=== PATIENT | male | born 1950 | race Caucasian/White ===

== ENCOUNTER 2019-03-28 10:30 | Emergency (ER) | payer OTHER ==
[~2019-03-28] VITALS: Ht 177.8 cm; Wt 63.6 kg
--- NOTE | 2019-03-28 11:00 | EKG ---
[facility] [address] [place] [address] Test Date: 2019-03-28 Test Time: 10:47:17 Pat Name: JUSTIN ALVES Department: Room: Gender: M Leave Manager: : 1950 Requested By: GAVIOTA BURNS Order Number: [id number] Reading MD: Measurements Intervals [place] Rate: 86 P: 90 DE: 170 QRS: 27 QRSD: 78 T: 52 QT: 334 QTc: 402 Interpretive Statements SINUS RHYTHM NON SPECIFIC ST-T ABNORMALITY (ELEVATION) BORDERLINE ECG No previous ECG available for comparison
--- NOTE | 2019-03-28 11:17 | PHYS DOC ---
Past Medical History Additional Past Medical Histor: colon cancer Adult General Chief Complaint Chief Complaint: NEURO SYMPTOMS/DEFICITS HPI HPI Patient is a 69 year old male patient with history of colon cancer status post colostomy in January 2019 who presents via EMS with complaint of slurred speech and weakness of arm and leg. Patient states around 2000 last night he had weakne ss of left leg and arm with facial droop and went to bed around 2200 with the same problem and when he woke up this morning still had weakness of leg and arm and facial droop called 911. Patient denies history of the same problem, nausea and vomiting, chest pain and shortness of breath, fever and chills. Review of Systems Review of Systems Constitutional: Denies fever or chills [] Eyes: Denies change in visual acuity, redness, or eye pain [] HENT: Denies nasal congestion or sore throat [] Respiratory: Denies cough or shortness of breath [] Cardiovascular: No additional information not addressed in HPI [] GI: Denies abdominal pain, nausea, vomiting, bloody stools or diarrhea [] : Denies dysuria or hematuria [] Musculoskeletal: Denies back pain or joint pain [] Integument: Denies rash or skin lesions [] Neurologic: Denies headache, reports focal weakness Endocrine: Denies polyuria or polydipsia [] All other systems were reviewed and found to be within normal limits, except as documented in this note. Current Medications Current Medications Current Medications Medications (Trade) Dose Ordered Sig/Buster Start Time Stop Time Status Last Admin Dose Admin Aspirin (Aspirin Rectal Supp) 300 mg 1X STAT 03/28/19 12:08 03/28/19 12:10 DC 03/28/19 12:19 300 MG Aspirin (Children'S Aspirin) 324 mg 1X ONCE 03/28/19 11:15 03/28/19 12:09 DC Info (CONTRAST GIVEN -- Rx MONITORING) 1 each PRN DAILY PRN 03/28/19 11:45 03/28/19 14:50 DC Iohexol (Omnipaque 300 Mg/ml) 75 ml 1X ONCE 03/28/19 11:45 03/28/19 11:46 DC 03/28/19 11:48 75 ML Allergies Allergies Allergies Coded Allergies Type Severity Reaction Last Updated Verified Penicillins Allergy Unknown 03/28/19 Yes clindamycin Allergy Unknown 1/20/20 Yes Physical Exam Physical Exam Constitutional: Well developed, well nourished, mild distress, non-toxic appearance. [] HENT: Normocephalic, atraumatic. Eyes: PERRLA, conjunctiva normal, no discharge. [] Neck: Normal range of motion, no tenderness, supple, no stridor. [] Cardiovascular:Heart rate regular rhythm, no murmur [] Lungs & Thorax: Bilateral breath sounds clear to auscultation [] Abdomen: Bowel sounds normal, cholecystomy bag in place , soft, no tenderness, no masses, no pulsatile masses. [] Skin: Warm, dry, no erythema, no rash. [] Back: No tenderness, no CVA tenderness. [] Extremities: No tenderness, no cyanosis, no clubbing, ROM intact, no edema. [] Neurologic: Alert and oriented X 3, facial droop and left upper and lower extremity weakness with in NIHS Of 12 Psychologic: Affect normal, judgement normal, mood normal. [] Current Patient Data Vital Signs Vital Signs Date Time Temp Pulse Resp B/P (MAP) Pulse Ox O2 Delivery O2 Flow Rate FiO2 03/28/19 13:00 84 17 98 03/28/19 11:07 98.6 140/81 (100) Room Air 98.6 Lab Values Laboratory Tests Test 03/28/19 11:50 White Blood Count 13.2 x10^3/uL (4.0-11.0) H Red Blood Count 4.21 x10^6/uL (4.30-5.70) L Hemoglobin 13.8 g/dL (13.0-17.5) Hematocrit 41.1 % (39.0-53.0) Mean Corpuscular Volume 98 fL (79-100) Mean Corpuscular Hemoglobin 33 pg (25-35) Mean Corpuscular Hemoglobin Concent 34 g/dL (31-37) Red Cell Distribution Width 15.2 % (11.5-14.5) H Platelet Count 207 x10^3/uL (140-400) Neutrophils (%) (Auto) 91 % (31-73) H Lymphocytes (%) (Auto) 7 % (24-48) L Monocytes (%) (Auto) 2 % (0-9) Eosinophils (%) (Auto) 1 % (0-3) Basophils (%) (Auto) 0 % (0-3) Neutrophils # (Auto) 12.0 x10^3/uL (1.8-7.7) H Lymphocytes # (Auto) 0.9 x10^3/uL (1.0-4.8) L Monocytes # (Auto) 0.3 x10^3/uL (0.0-1.1) Eosinophils # (Auto) 0.1 x10^3/uL (0.0-0.7) Basophils # (Auto) 0.0 x10^3/uL (0.0-0.2) Segmented Neutrophils % 89 % (35-66) H Lymphocytes % 9 % (24-48) L Monocytes % 2 % (0-10) Platelet Estimate Adequate (ADEQUATE) Prothrombin Time 13.8 SEC (11.7-14.0) Prothrombin Time INR 1.1 (0.8-1.1) Activated Partial Thromboplast Time 24 SEC (24-38) Sodium Level 129 mmol/L (136-145) L Potassium Level 4.5 mmol/L (3.5-5.1) Chloride Level 96 mmol/L (98-107) L Carbon Dioxide Level 20 mmol/L (21-32) L Anion Gap 13 (6-14) Blood Urea Nitrogen 58 mg/dL (8-26) H Creatinine 1.3 mg/dL (0.7-1.3) Estimated GFR (Cockcroft-Gault) 55.1 BUN/Creatinine Ratio 45 (6-20) H Glucose Level 120 mg/dL (70-99) H Calcium Level 9.0 mg/dL (8.5-10.1) Magnesium Level 2.2 mg/dL (1.8-2.4) Total Bilirubin 0.7 mg/dL (0.2-1.0) Aspartate Amino Transferase (AST) 29 U/L (15-37) Alanine Aminotransferase (ALT) 31 U/L (16-63) Alkaline Phosphatase 215 U/L (46-116) H Creatine Kinase 71 U/L (39-308) Troponin I Quantitative < 0.017 ng/mL (0.000-0.055) IG-Ndh-X-Type Natriuretic Peptide 162 pg/mL (0-124) H Total Protein 6.7 g/dL (6.4-8.2) Albumin 3.0 g/dL (3.4-5.0) L Albumin/Globulin Ratio 0.8 (1.0-1.7) L Laboratory Tests 03/28/19 11:50 Laboratory Tests 03/28/19 11:50 EKG EKG EKG interpreted by me. EKG at 1047 showed normal sinus rhythm at rate of 87, nonspecific ST and T wave abnormality, no acute ST and T-wave elevation. Radiology/Procedures Radiology/Procedures [facility] [address] [place] [address] IMAGING REPORT Signed PATIENT: JUSTIN ALVES ACCOUNT: [id number] : 1950 LOCATION: ER AGE: 69 SEX: M EXAM STATUS: PRE ER ORD. PHYSICIAN: GAVIOTA BURNS MD REASON: slurred speech and facial droop PROCEDURE: CT HEAD WO CONTRAST Examination: CT HEAD WO CONTRAST History: Slurred speech and facial droop Comparison/Correlation: None Findings: Axial images of the head were obtained without contrast. Coronal reformatted images were provided. Subtle low attenuation is noted involving the high posterior parietal lobe and this is best seen on axial image 22. Subtle low-attenuation involving the right frontal lobe is also evident and this is best seen on axial image 19. Associated gyral effacement is noted primarily at the right posterior parietal region. Linear low attenuation involving the cerebellum bilaterally seen. No intracranial hemorrhage or midline shift. Globes optic nerves are unremarkable. Left sphenoid sinus mucous retention cyst is present. Mucosal thickening of the ethmoid air cells. Bony structures are intact. Impression: Acute right posterior parietal infarct appears to be present. Acute right frontal lobe infarct as well noted. No intracranial hemorrhage. On 03/30/2019 11:12 AM, results were reported to Dr. Burns. PQRS Compliance Statement: One or more of the following individualized dose reduction techniques were utilized for this examination: 1. Automated exposure control 2. Adjustment of the mA and/or kV according to patient size 3. Use of iterative reconstruction technique Electronically signed by: David Fowler MD (03/28/2019 11:13 AM) [facility] DICTATED and SIGNED BY: DAVID FOWLER MD DATE: 03/28/19 1113 [facility] [address] [place] [address] IMAGING REPORT Signed PATIENT: JUSTIN ALVES ACCOUNT: [id number] : 1950 LOCATION: ER AGE: 69 SEX: M EXAM STATUS: REG ER ORD. PHYSICIAN: GAVIOTA BURNS MD REASON: acute focal neuro deficit, slurred speech, facial droop PROCEDURE: CT ANGIOGRAPHY HEAD AND NECK ADDENDUM Addendum: Loss of reed-white matter differentiation involving the middle cerebral artery distribution at the anterior, lateral, and posterior aspect is seen. Maximum aspect score of 7 is noted. Electronically signed by: David Fowler MD (03/28/2019 1:07 PM) [facility] DICTATED AND SIGNED BY: DAVID FOWLER MD DATE: 03/28/19 1302 CC: GAVIOTA BURNS MD; MARISSA STRICKLAND MD ~ Examination: CT ANGIOGRAPHY HEAD AND NECK History: Acute focal neurologic deficits, slurred speech, facial droop Comparison/Correlation: CT head without contrast 03/28/2019 Findings: Axial images of the head and neck were obtained following IV contrast according to arteriography protocol. Maximum intensity projection images were provided. Sagittal and coronal reformatted images were provided. 3-D volume rendered images were provided. Right sided infusion port catheter is present. Angiographic findings: The aortic arch has a typical branching pattern. There is no arch vessel stenosis. There is no opacification of the right internal carotid artery seen at the level of the superior carotid bulb to the level just proximal to the cavernous carotid. Calcific plaque is noted involving the right carotid bulb. Stenosis involving the proximal right internal carotid artery with a diameter of 0.2 cm. More distally, diameter of up to 0.4 cm. Calcific plaque is noted at this level extending for length of 0.8 cm. The vertebral arteries are patent. Plaque is noted involving the proximal right vertebral artery without significant stenosis. The basilar artery is patent. Both posterior cerebral arteries are patent. The posterior communicating arteries are visualized. Contrast which is appears related to collateral flow is present within the right cavernous carotid artery is of lesser density than seen on the left cavernous carotid artery. Slight hypoperfusion of the right cerebral hemisphere is noted. Infarct involving the right posterior parietal region and the right lateral frontal region are acute in appearance. Infarct involving the right temporal lobe is also suggested with acute appearance. There is gyral effacement primarily at the right posterior parietal infarct. Nonangiographic findings: There is no intracranial hemorrhage. The ventricles are normal in size and position. The paranasal sinuses appear clear. The orbits are unremarkable. The temporal bones are unremarkable. Bone windows reveal no suspicious lesions. The lung apices demonstrate no acute abnormality. Severe disc space narrowing at C5-C7 noted. Moderate C4-5 disc space narrowing. Facet joint degenerative changes lower cervical spine neural foraminal encroachment due to bony spurring noted. The parotid glands and submandibular glands are unremarkable. The thyroid gland demonstrates no suspicious lesions. There are no laryngeal or pharyngeal masses. There are no pathologically enlarged lymph nodes. IMPRESSION: There is no definite flow identified involving the right internal carotid artery from the bulb level to the proximal cavernous carotid region. Collateral related flow is evident within the right cavernous carotid artery. Associated slight hypoperfusion of the right cerebral hemisphere with regions of acute to late acute infarct. 50 percent stenosis of the left internal carotid artery proximally. The referring emergency room physician was informed on 03/28/2019 at 12:17 PM. PQRS Compliance Statement - Stenosis calculations for CT, MR and conventional angiography are based upon measurement of the distal ICA diameter in accordance with the NASCET methodology. Stenosis calculations for carotid ultrasound studies are derived from validated velocity criteria which are known to correlate with the NASCET methodology. *One or more of the following individualized dose reduction techniques were utilized for this examination: 1. Automated exposure control. 2. Adjustment of the mA and/or kV according to patient size. 3. Use of iterative reconstruction technique. Electronically signed by: David Fowler MD (03/28/2019 12:38 PM) [facility] DICTATED and SIGNED BY: DAVID FOWLER MD DATE: 03/28/19 4874 Course & Med Decision Making Course & Med Decision Making Pertinent Labs and Imaging studies reviewed. (See chart for details) Evaluation of patient in ER showed 69-year-old male patient brought in by EMS with acute neurodeficit at that started about 14 hours prior to arrival to ER. Patient had been IH is of [address] of head showed ischemic change in frontal and parietal lobe. Patient was not a candidate for TPA because of starting symptom more than [address] Perez on-call neurologist was consulted at [address]8 and agreed with obtaining CT angiogram of head and neck that showed complete occlusion of right carotid artery. After consulting Dr Perez at 1221 plan to transfer patient to [facility]. Dr. Quezada neurologist at [facility] accepted transfer 1247. Patient informed about test results and plan of care and needs for transfer. Dragon Disclaimer Dragon Disclaimer This electronic medical record was generated, in whole or in part, using a voice recognition dictation system. 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 NIHSS Stroke Scale NIH Stroke Scale: NIH Stroke Scale Response (Comments) Value Level of Consciousness: 0 Alert/Responsive 0 LOC Questions: 0 Answers both correctly 0 LOC Commands: 0 Performs both tasks 0 Best Gaze: 1 Partial gaze palsy 1 Visual: 2 Complete hemianopia 2 Facial Palsy: 2 Partial paralysis 2 Motor - Left Arm 1 Drifts, but can hold 1 Motor - Right Arm 0 No drift 0 Motor - Left Leg 1 Drift but can hold 1 Motor: Right Leg 0 No drift 0 Limb Ataxia: 1 One limb 1 Sensory: 1 Mid to moderate loss 1 Best Language: 1 Mild to mod aphasia 1 Dysathria: 1 Mild to moderate 1 Extinction and Inattention: 1 One sensory modality 1 Total 12 Problem Qualifiers GAVIOTA BURNS MD Mar 28, 2019 11:17
[2019-03-28] MEDS ORDERED: CONTRAST GIVEN. MC PRN (11:45)
[2019-03-28] MEDS: IOHEXOL 300 MG/ML 100ML VIAL. IV ONE (11:48)
[2019-03-28] MEDS: ASPIRIN CHEWABLE 81 MG TABLET. PO ONE (12:08)
[2019-03-28 12:12] LABS: BASO % 0 % (0-3); EOS # 0.1 x10^3/uL (0.0-0.7); EOS % 1 % (0-3); HEMATOCRIT 41.1 % (39.0-53.0); HEMOGLOBIN 13.8 g/dL (13.0-17.5); LYMPH # 0.9 x10^3/uL (1.0-4.8); LYMPH % 7 % (24-48); MEAN CORPUSCULAR HEMOGLOBIN 33 pg (25-35); MEAN CORPUSCULAR HGB CONC 34 g/dL (31-37); MEAN CORPUSCULAR VOLUME 98 fL (79-100); MONO # 0.3 x10^3/uL (0.0-1.1); MONO % 2 % (0-9); NEUT % 91 % (31-73); PLATELET COUNT 207 x10^3/uL (140-400); RED BLOOD COUNT 4.21 x10^6/uL (4.30-5.70); RED CELL DISTRIBUTION WIDTH 15.2 % (11.5-14.5); WHITE BLOOD COUNT 13.2 x10^3/uL (4.0-11.0)
[2019-03-28] MEDS: ASPIRIN RECTAL 300 MG SUPP. PR STA (12:19)
[2019-03-28 12:21] LABS: PROTHROMBIN TIME PATIENT 13.8 SEC (11.7-14.0)
[2019-03-28 12:28] LABS: CREATININE 1.3 mg/dL (0.7-1.3); GFR 55.1; POTASSIUM 4.5 mmol/L (3.5-5.1)
[2019-03-28 12:35] LABS: ALBUMIN/GLOBULIN RATIO 0.8 (1.0-1.7); MAGNESIUM 2.2 mg/dL (1.8-2.4); TOTAL BILIRUBIN 0.7 mg/dL (0.2-1.0); TOTAL PROTEIN 6.7 g/dL (6.4-8.2)
--- NOTE | 2019-03-28 12:41 | RAD ---
Examination: CT ANGIOGRAPHY HEAD AND NECK History: Acute focal neurologic deficits, slurred speech, facial droop Comparison/Correlation: CT head without contrast 03/28/2019 Findings: Axial images of the head and neck were obtained following IV contrast according to arteriography protocol. Maximum intensity projection images were provided. Sagittal and coronal reformatted images were provided. 3-D volume rendered images were provided. Right sided infusion port catheter is present. Angiographic findings: The aortic arch has a typical branching pattern. There is no arch vessel stenosis. There is no opacification of the right internal carotid artery seen at the level of the superior carotid bulb to the level just proximal to the cavernous carotid. Calcific plaque is noted involving the right carotid bulb. Stenosis involving the proximal right internal carotid artery with a diameter of 0.2 cm. More distally, diameter of up to 0.4 cm. Calcific plaque is noted at this level extending for length of 0.8 cm. The vertebral arteries are patent. Plaque is noted involving the proximal right vertebral artery without significant stenosis. The basilar artery is patent. Both posterior cerebral arteries are patent. The posterior communicating arteries are visualized. Contrast which is appears related to collateral flow is present within the right cavernous carotid artery is of lesser density than seen on the left cavernous carotid artery. Slight hypoperfusion of the right cerebral hemisphere is noted. Infarct involving the right posterior parietal region and the right lateral frontal region are acute in appearance. Infarct involving the right temporal lobe is also suggested with acute appearance. There is gyral effacement primarily at the right posterior parietal infarct. Nonangiographic findings: There is no intracranial hemorrhage. The ventricles are normal in size and position. The paranasal sinuses appear clear. The orbits are unremarkable. The temporal bones are unremarkable. Bone windows reveal no suspicious lesions. The lung apices demonstrate no acute abnormality. Severe disc space narrowing at C5-C7 noted. Moderate C4-5 disc space narrowing. Facet joint degenerative changes lower cervical spine neural foraminal encroachment due to bony spurring noted. The parotid glands and submandibular glands are unremarkable. The thyroid gland demonstrates no suspicious lesions. There are no laryngeal or pharyngeal masses. There are no pathologically enlarged lymph nodes. IMPRESSION: There is no definite flow identified involving the right internal carotid artery from the bulb level to the proximal cavernous carotid region. Collateral related flow is evident within the right cavernous carotid artery. Associated slight hypoperfusion of the right cerebral hemisphere with regions of acute to late acute infarct. 50 percent stenosis of the left internal carotid artery proximally. The referring emergency room physician was informed on 03/28/2019 at 12:17 PM. RS Compliance Statement - Stenosis calculations for CT, MR and conventional angiography are based upon measurement of the distal ICA diameter in accordance with the NASCET methodology. Stenosis calculations for carotid ultrasound studies are derived from validated velocity criteria which are known to correlate with the NASCET methodology. *One or more of the following individualized dose reduction techniques were utilized for this examination: 1. Automated exposure control. 2. Adjustment of the mA and/or kV according to patient size. 3. Use of iterative reconstruction technique. Electronically signed by: David Ford MD (03/28/2019 12:38 PM) [facility]
[2019-03-28 13:00] VITALS: BP 109/81
[2019-03-28 13:19] LABS: % LYMPHS 9 % (24-48); % MONOS 2 % (0-10); % SEGS 89 % (35-66); PLT ESTIMATE ADEQUATE (ADEQUATE)
== END 2019-03-28 13:36 | disposition short-term general hospital (02) ==
LOC: ER 10:30
DX: I67.81 Acute cerebrovascular insufficiency (principal); I63.231 Cerebral infarction due to unspecified occlusion or stenosis of right carotid arteries; N18.9 Chronic kidney disease, unspecified; R47.81 Slurred speech; R29.810 Facial weakness; Z85.038 Personal history of other malignant neoplasm of large intestine; Z88.0 Allergy status to penicillin; Z88.1 Allergy status to other antibiotic agents; Z79.82 Long term (current) use of aspirin
CPT/HCPCS: 36415; 70450; 70496; 70498; 80053; 82550; 83735; 83880; 84484; 85007; 85025; 85610; 85730; 93005; 99285; Q9967